=== PATIENT | male | born 1960 | race Hispanic/Latino ===

== ENCOUNTER 2022-11-08 14:21 | Emergency (ER) | payer OTHER ==
[~2022-11-08] VITALS: Ht 177.8 cm; Wt 99.8 kg
[2022-11-08] MEDS ORDERED: LIDOCAINE HCL 1% 20 ML VIAL ONE (15:27)
[2022-11-08 15:28] LABS: HEMATOCRIT 39.7 % (42-54); MEAN CORPUSCULAR VOLUME 91.3 fL (79-99); RED BLOOD CELL COUNT(AUTO) 4.35 MIL/uL (4.50-6.20); RED CELL DISTRIBUTION WIDTH 12.6 % (11.0-15.5); WHITE BLOOD COUNT (AUTO) 15.4 K/uL (4.8-10.8)
[2022-11-08 15:37] LABS: CREATININE 0.7 mg/dL (0.5-1.5)
[2022-11-08 15:38] LABS: PROTHROMBIN TIME 10.9 SEC (9.6-11.6)
[2022-11-08 15:48] LABS: ALBUMIN 3.7 g/dL (3.5-5.0); TOTAL PROTEIN, SERUM 7.1 g/dL (6.0-8.3)
[2022-11-08] MEDS ORDERED: TETANUS/DIPHTHERIA TOXOID [ADULT] 0.5 ML VIAL IM ONE (16:30)
[2022-11-08] MEDS ORDERED: CEFTRIAXONE 1G VIAL IVP ONE (16:30)
[2022-11-08] MEDS ORDERED: CEPH500B PO (17:20)
[2022-11-08] MEDS ORDERED: ACETAMINOPHEN 325 MG TAB PO ONE (18:00)
[2022-11-08 18:13] VITALS: BP 130/87
== END 2022-11-08 18:24 | disposition home or self-care (01) ==
LOC: EDH 14:21
DX: S01.01XA Laceration without foreign body of scalp, initial encounter (principal); D72.829 Elevated white blood cell count, unspecified; I10 Essential (primary) hypertension; E78.00 Pure hypercholesterolemia, unspecified; Z98.890 Other specified postprocedural states; X58.XXXA Exposure to other specified factors, initial encounter; Y93.89 Activity, other specified; Y92.89 Other specified places as the place of occurrence of the external cause; Y99.8 Other external cause status
CPT/HCPCS: 99284; 96374; 80053; 85027; 85610; 36415; 90714; 90471; 12002; J0696